=== PATIENT | female | born 1960 | race Caucasian/White ===

== ENCOUNTER 2024-02-22 00:26 | Outpatient (CLI) | payer BC, SELFPAY ==
[2024-02-22 11:06] LABS: Glucose 91 mg/dL (74-106)
[2024-02-22 11:20] LABS: Calculated LDL 109 mg/dL (<100); Cholesterol 184 mg/dL (<200); HDL Cholesterol 54 mg/dL (40-60); TSH (W/Ref FT4) 3.03 uIU/mL (0.36-3.74); Triglyceride 105 mg/dL (<150)
== END 2024-02-22 00:27 | disposition home or self-care (01) ==
LOC: LBO 00:26
PROVIDERS: PCP Nurse Practitioner Family; Visit Provider Nurse Practitioner Family
DX: Z00.00 Encounter for general adult medical examination without abnormal findings (principal); R63.5 Abnormal weight gain
CPT/HCPCS: 36415; 80061; 82947; 84443

== ENCOUNTER 2024-03-11 02:24 | Outpatient (CLI) | payer BC, SELFPAY ==
--- NOTE | 2024-03-11 06:45 | DI.MAMMO_ITS ---
Exam(s) MAMMO SCREENING EXAM: MAMMO SCREENING CLINICAL HISTORY: screening,z12.39 TECHNIQUE: Bilateral full field digital CC and MLO mammographic images were obtained with 3D tomosyn thesis and utilizing computer aided detection (CAD). COMPARISON: There are no priors for comparison. FINDINGS: Masses/Architectural Distortion: There is asymmetric density at the 6 o'clock position of the left br east 3.5 cm from the nipple. This area should be further evaluated with spot compression views. The re is a question of a faint well-circumscribed density in the outer right breast on the craniocaudad view 8 cm from the nipple measuring 8 mm. Microcalcifications: No suspicious pleomorphic-type are seen. Skin Thickening/Nipple Retraction: None. IMPRESSION: 1. Asymmetric density at the 6 o'clock position of the left breast. This area should be further eval uated with a spot compression view. Ultrasound may be indicated at that time. 2. Question of a well-circumscribed density in the outer right breast on the craniocaudad view 8 cm f rom the nipple. Spot compression views requested. Ultrasound may be indicated at that time. BI-RADS Category 0 - Incomplete: Need additional imaging evaluation Breast Density - Category B - Scattered areas of fibroglandular density Breast density category C or D implies that the patient has dense breast tissue. Dense breast tissue is very common and is not abnormal but dense breast tissue can make it harder to find cancer on a ma mmogram. Also, dense breast tissue may increase their breast cancer risk. This information about the result of the mammogram report was provided to the patient to raise their awareness. Use this report when you speak with the patient about their risks for breast cancer, which includes their family hist ory. At that time, you may recommend for more screening tests (Ultrasound or MRI) as they might be us eful based on their risk. A negative radiographic report should not delay biopsy if a dominant or clinically suspicious mass is present. Up to ten percent of cancers are not identified on mammography. A negative report may reinforce clinical impression. Adenosis and dense breasts may obscure an underlying neoplasm. False positive reports average 6 to 10%. Patient will receive a letter notifying them of these results.
== END 2024-03-11 02:44 ==
LOC: DI 02:24
PROVIDERS: PCP Nurse Practitioner Family; Visit Provider Nurse Practitioner Family
DX: Z12.31 Encounter for screening mammogram for malignant neoplasm of breast (principal); R92.323 Mammographic fibroglandular density, bilateral breasts
CPT/HCPCS: 77063; 77067

== ENCOUNTER 2024-03-28 03:01 | Outpatient (CLI) | payer BC, SELFPAY ==
--- NOTE | 2024-03-28 | DI.US_ITS ---
Exam(s) US BREAST RT LIMITED US BREAST LT LIMITED MG MAMMO SCREEN CALL BACK BI EXAM: MG MAMMO SCREEN CALL BACK BI and bilateral breast ultrasound limited CLINICAL HISTORY: ? faint well-circumscribed density, Rt, 8 cm from nipple. TECHNIQUE: Craniocaudal and mediolateral oblique Full Field Digital Mammography views of the bilater al breast with Computer Aided Diagnosis followed by Tomosynthesis and limited bilateral breast ultras ound. COMPARISON: The only prior examination is the examination from 03/11/2024. When prior examinations a re available, an addendum will be issued. FINDINGS: Mammography/Tomosynthesis: Masses/Architectural Distortion: The area at the 6 o'clock position of the left breast is less promin ent compared to the prior examination. The area in the outer right breast does not persist. No area s of architectural distortion are seen. Microcalcifictions: No suspicious pleomorphic-type are seen. Skin Thickening/Nipple Retraction: None. Limited bilateral breast US: Echotexture: Normal appearance of the glandular tissue. Shadowing: No suspicious foci. Cyst: None. Solid lesions: None seen. Ductal dilation: None. IMPRESSION: 1. No definite evidence of malignancy is noted. 2. A 3 month follow-up left mammogram is requested for re-evaluation. 3. The findings were discussed with the patient on the date of the examination. BI-RADS Category 3 - Probably Benign Finding: Recommend follow-up imaging in 3 months Breast Density - Category B - Scattered areas of fibroglandular density Breast density Category C or D implies that the patient has dense breast tissue. Dense breast tissue can make it harder to find cancer on a mammogram. Dense breast tissue is also associated with an incr eased risk of breast cancer. This information about the result of the mammogram report was provided to the patient to raise their awareness. Use this report when you speak with the patient about their risks for breast cancer, which includes their family history. At that time, you may recommend additional screening tests (Ultrasoun d or MRI) as these tests may add significant information. A negative radiographic report should not delay biopsy if a dominant or clinically suspicious mass is present. Up to ten percent of cancers are not identified on mammography. A negative report may reinforce clinical impression. Adenosis and dense breasts may obscure an underlying neoplasm. False positive reports average 6 to 10%. Patient will receive a letter notifying them of these results.
== END 2024-03-28 03:21 ==
LOC: DI 03:01
PROVIDERS: PCP Nurse Practitioner Family; Visit Provider Nurse Practitioner Family
DX: Z12.31 Encounter for screening mammogram for malignant neoplasm of breast (principal); D24.1 Benign neoplasm of right breast; R92.323 Mammographic fibroglandular density, bilateral breasts
CPT/HCPCS: 76642; 77063; 77067

== ENCOUNTER 2025-01-03 02:55 | Outpatient (CLI) | payer BC, SELFPAY ==
[2025-01-03 07:47] LABS: HCT 52.5 % (36.0-46.0); HGB 16.9 g/dL (11.2-15.7); MCH 32.1 pg (27.0-33.0); MCHC 32.2 % (32.0-36.0); MCV 100 fL (80-95); MPV 9.3 fL (8.0-11.0); Platelet Count 360 10^3/uL (130-400); RBC 5.26 10^6/uL (3.93-5.22); RDW 14.7 % (11.7-14.6); RDW-SD 54.8 fL; WBC 9.65 10^3/uL (4.4-10.8)
[2025-01-03 08:19] LABS: Hemoglobin A1C 5.3 % (<5.7)
[2025-01-03 08:43] LABS: ALT 21 U/L (14-59); AST 27 U/L (15-37); Albumin 3.8 g/dL (3.4-5.0); Alkaline Phosphatase 131 U/L (46-116); Anion Gap 8.3 mmol/L (3-11); BUN 14 mg/dL (7-18); Bilirubin, Total 0.5 mg/dL (0.2-1.0); CO2 29.7 mmol/L (21.0-32.0); Calcium 9.1 mg/dL (8.5-10.1); Chloride 103 mmol/L (98-107); Glucose 91 mg/dL (74-106); Magnesium 2.1 mg/dL (1.8-2.4); Potassium 3.8 mmol/L (3.5-5.1); Sodium 141 mmol/L (136-145); TSH (W/Ref FT4) 3.67 uIU/mL (0.36-3.74); Total Protein 7.5 g/dL (6.4-8.2)
[2025-01-03 09:19] LABS: Cholesterol 186 mg/dL (<200); HDL Cholesterol 44 mg/dL (>or=50); Vitamin D 25 Total 37 ng/mL (30-100)
[2025-01-07 08:54] LABS: Lab Add On Test DONE
[2025-01-07 15:04] LABS: Estradiol, Mass Spectrometry <10 pg/mL
== END 2025-01-03 02:56 | disposition home or self-care (01) ==
LOC: LBO 02:55
PROVIDERS: PCP Nurse Practitioner Family; Visit Provider Nurse Practitioner Family
DX: Z00.00 Encounter for general adult medical examination without abnormal findings (principal); M85.80 Other specified disorders of bone density and structure, unspecified site; R63.5 Abnormal weight gain
CPT/HCPCS: 36415; 80053; 80061; 82306; 82668; 85027; 82670; 82679; 83036; 83525; 83735; 83970; 84100; 84443

== ENCOUNTER 2025-01-15 03:25 | Outpatient (CLI) | payer BC, SELFPAY ==
--- NOTE | 2025-01-15 10:00 | W.NUTRFU ---
Date of service: 01/15/25 Time of Service: 09:00 Nutrition Note NOTE: Met with pt in-person for nutrition counseling. 64 yr old female pt who presents with unintentional wt gain. Pt reports a 40# wt gain over the past 3 years, currently 175#. Attibutes wt gain to stress eating as a result from going through stressful events in her life like moving, taking care of her family, and being a nurse for 32 years. 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 Pt would like to see some progress with wt loss and healthy eating to prevent chronic conditions and from going on medications. Pt says her big problem is eating too much throughout the day without regards to what it is. This window usually occurs between breakfast and dinner. Breakfast is typically cottage cheese, protein smoothie, and oatmeal with lots of stuff on it like maple syrup. Lately she's been packing her lunch like a chicken/tuna salad with veggies a few times a week which prevents some additional grazing. When she's out and about she's tempted to stop in and grab something to eat like a bagel with moses, egg, and cheese. Acknowledges that some of these habits may not be good for her but doesn't know how to curb those actions. Mentions she was on high protein keto diet, Atkins, and intermittent fasting which she saw some success with wt loss. Dinner last night was chicken breast, sweet potato, vegetables. Reviewed w/ her the benefits of high fiber/high protein for satiety. Also spoke about the importance of getting back into a regular strength training/cardio routine. Pt finds it would be helpful to have sample menus with calculated macros, and fiber goals. She would like to focus on healthy ways of adding carbs back into her diet after being on keto for so long. Will send sample menus to pt with her calculated macros and targets that include healthy carb choices and follow her current eating patterns. Pt is aware she can contact the dietitian if she has any questions or would like a follow-up appointment. Time Spent in Nutritional Counseling and Treatment: 45 mins
== END 2025-01-15 03:26 | disposition home or self-care (01) ==
LOC: DS 03:25
PROVIDERS: PCP Nurse Practitioner Family; Visit Provider Dietitian, Registered
DX: R63.5 Abnormal weight gain (principal)
CPT/HCPCS: 00123; 97802

== ENCOUNTER 2025-01-29 01:33 | Outpatient (CLI) | payer BC, SELFPAY ==
[2025-01-29 11:43] LABS: HCT 49.1 % (36.0-46.0); HGB 16.4 g/dL (11.2-15.7); MCH 33.6 pg (27.0-33.0); MCHC 33.4 % (32.0-36.0); MCV 101 fL (80-95); MPV 9.4 fL (8.0-11.0); Platelet Count 382 10^3/uL (130-400); RBC 4.88 10^6/uL (3.93-5.22); RDW 14.6 % (11.7-14.6); RDW-SD 55.0 fL; WBC 11.54 10^3/uL (4.4-10.8)
== END 2025-01-29 01:34 | disposition home or self-care (01) ==
LOC: LBO 01:33
PROVIDERS: PCP Nurse Practitioner Family; Referring Provider Nurse Practitioner Family; Visit Provider Nurse Practitioner Family
DX: D75.1 Secondary polycythemia (principal)
CPT/HCPCS: 36415; 85027; 81270